=== PATIENT | male | born 1995 | race Asian ===

== ENCOUNTER 2018-02-09 03:41 | Emergency (ER) | payer SELFPAY ==
[~2018-02-09] VITALS: Ht 180.3 cm; Wt 76.3 kg
[2018-02-09 03:48] VITALS: Ht 180.3 cm; Wt 76.3 kg
[2018-02-09 05:12] VITALS: BP 126/74
== END 2018-02-09 05:12 | disposition home or self-care (01) ==
LOC: ED 03:41
DX: S62.101A Fracture of unspecified carpal bone, right wrist, initial encounter for closed fracture (principal); W19.XXXA Unspecified fall, initial encounter; Y93.51 Activity, roller skating (inline) and skateboarding; Y92.89 Other specified places as the place of occurrence of the external cause; Y99.8 Other external cause status
CPT/HCPCS: A4570